=== PATIENT | female | born 1995 | race Caucasian/White ===

== ENCOUNTER 2018-09-25 15:10 | Emergency (ER) | payer SELFPAY ==
[~2018-09-25] VITALS: Ht 157.5 cm; Wt 62.0 kg
[2018-09-25 15:35] VITALS: BP 137/71
--- NOTE | 2018-09-25 16:44 | NUR ---
Patient/Caregiver given discharge instructions and they have confirmed that they understand the instructions. Patient ambulatory with steady gait.
== END 2018-09-25 16:46 | disposition home or self-care (01) ==
LOC: ED 16:20
DX: K02.9 Dental caries, unspecified (principal); B34.9 Viral infection, unspecified; K08.89 Other specified disorders of teeth and supporting structures; F17.200 Nicotine dependence, unspecified, uncomplicated; J45.909 Unspecified asthma, uncomplicated
CPT/HCPCS: 71046; 99283